=== PATIENT | female | born 2000 | race Two or more races ===

== ENCOUNTER 2021-05-08 11:08 | Emergency (ER) | payer OTHER ==
[~2021-05-08] VITALS: Ht 157.5 cm; Wt 75.0 kg
[2021-05-08 12:00] VITALS: BP 119/52
[2021-05-08] MEDS ORDERED: DICL500C PO (12:16)
--- NOTE | 2021-05-08 12:19 | PHYS DOC ---
General Adult EDM: Chief Complaint: BREAST PROBLEM HPI: HPI: Patient is a 20-year-old female who presents to the emergency department today for left breast pain and redness along with flulike symptoms including fever, chills, body aches that started on Tuesday. Patient is currently breast-feeding. She had a on March 24. Patient took Tylenol this morning at 10 AM. Patient denies any cough, shortness of breath, chest pain, nausea, vomiting. Patient has not been on any antibiotics recently. (MARY ANN FITZGERALD APRN) Review of Systems: Review of Systems: Constitutional: negative unless reported in HPI Eyes: negative unless reported in HPI HENT: negative unless reported in HPI Respiratory: negative unless reported in HPI Cardiovascular: negative unless reported in HPI GI: negative unless reported in HPI : negative unless reported in HPI Musculoskeletal: negative unless reported in HPI Integument: negative unless reported in HPI Neurologic: negative unless reported in HPI Endocrine: negative unless reported in HPI Lymphatic: negative unless reported in HPI Psychiatric: negative unless reported in HPI (MARY ANN FITZGERALD APRN) Physical Exam: PE: Constitutional: Well developed, well nourished, no acute distress, non-toxic appearance. [] HENT: Normocephalic, atraumatic, bilateral external ears normal, oropharynx moist, no oral exudates, nose normal. [] Eyes: PERRL, EOMI, conjunctiva normal, no discharge. [] Neck: Normal range of motion, no tenderness, supple, no stridor. [] Cardiovascular:Heart rate regular rhythm, no murmur [] Lungs & Thorax: Bilateral breath sounds clear to auscultation [] Breast: Erythema,mild swelling and tenderness noted to left lower inner/outer quadrant of breast, no palpable abscess, no nipple discharge, no streaking of redness Abdomen: Bowel sounds normal, soft, no tenderness, no masses, no pulsatile masses. [] Skin: Warm, dry, no erythema, no rash. [] Back: No tenderness, no CVA tenderness. [] Extremities: No tenderness, no cyanosis, no clubbing, ROM intact, no edema. [] Neurologic: Alert and oriented X 3, normal motor function, normal sensory function, no focal deficits noted. [] Psychologic: Affect normal, judgement normal, mood normal. [] (MARY ANN FITZGERALD APRN) EKG: EKG: [] (MARY ANN FITZGERALD APRN) Radiology/Procedures: Radiology/Procedures: [] (MARY ANN FITZGERALD APRN) Heart Score: C/O Chest Pain: N/A Risk Factors: Risk Factors: DM, Current or recent (<one month) smoker, HTN, HLP, family history of CAD, obesity. Risk Scores: Score 0 - 3: 2.5% MACE over next 6 weeks - Discharge Home Score 4 - 6: 20.3% MACE over next 6 weeks - Admit for Clinical Observation Score 7 - 10: 72.7% MACE over next 6 weeks - Early Invasive Strategies (MARY ANN FITZGERALD APRN) Course & Med Decision Making: Course & Med Decision Making Pertinent Labs and Imaging studies reviewed. (See chart for details) Patient presents to the emergency department today for left breast pain, redness, mild swelling that started on Tuesday. Patient is breast-feeding. She is also reporting flulike symptoms including fever, chills, body aches. Patient does have a fever in the emergency department, she reports taking Tylenol at 10 AM, she will be treated with ibuprofen. Upon physical assessment, it appears the patient does have left breast mastitis. Patient will be treated with an antibiotic. She is advised to continue breast-feeding, wear supportive bra and apply warm compresses and follow-up with her [facility]. I discussed with patient all findings and diagnostic testing as well as the need to follow-up with PCP for further evaluation and treatment or return to the ER if any new or worsening symptoms. Strict return precautions were also discussed at length. Patient voiced understanding and agreement with the plan. Patient is hemodynamically stable at the time of disposition. (MARY ANN FITZGERALD APRN) Course & Med Decision Making I was the Attending physician on the above date of service of this patient. This patient was evaluated, examined, treated, and dispositioned from the emergency department by the mid-level practitioner. Although I was working at the time , no assistance was requested. Electronically signed, Semaj Orlando DO (SEMAJ ORLANDO DO) Scott Disclaimer: Scott Disclaimer: This electronic medical record was generated, in whole or in part, using a voice recognition dictation system. (MARY ANN FITZGERALD APRN) Departure Departure: Impression: Primary Impression: Mastitis Disposition: HOME / SELF CARE / HOMELESS Condition: GOOD Referrals: LIA CHURCH (PCP) Patient Instructions: Mastitis Additional Instructions: You were seen in the emergency department today for left breast pain, redness, swelling, fever, chills, body aches. As discussed, it appears that you have mastitis. Treatment for this includes wearing a supportive bra, applying warm compresses and continuing to breast-feed. You are being discharged home with an antibiotic to treat this also. Please start and finish it completely. Please take Tylenol and/or ibuprofen for pain or fevers. Increase your fluids. Follow-up with your primary care provider/[facility] on Tuesday regarding your ER visit. Return to the emergency department if you develop worsening of your redness/warmth/swelling/pain, high fevers refractory to treatment, intractable nausea or vomiting, severe body aches, weakness or any new or worsening concerns. Scripts Dicloxacillin Sodium (DICLOXACILLIN SODIUM) 500 Mg Capsule 1 CAP PO QID for mastitis for 10 Days, #40 CAP 0 Refills Prov: MARY ANN FITZGERALD APRN 05/08/21 MARY ANN FITZGERALD APRN May 08, 2021 12:19 SEMAJ ORLANDO DO May 09, 2021 07:56
[2021-05-08] MEDS ORDERED: IBUPROFEN 600 MG TABLET. PO ONE (12:30)
== END 2021-05-08 13:09 | disposition home or self-care (01) ==
LOC: ER 11:08
DX: N61.0 Mastitis without abscess (principal)
CPT/HCPCS: 99283